=== PATIENT | female | born 1985 | race African-American/Black ===

== ENCOUNTER 2023-08-17 10:20 | Emergency (ER) | payer OTHER, SELFPAY ==
[2023-08-17 10:22] VITALS: BP 121/79
[2023-08-17 11:10] VITALS: BP 114/90
--- NOTE | 2023-08-17 11:10 | ED.GENMED ---
History of Present Illness
<Janice Rodney PA-C - Last Filed: 08/17/23 14:28>
General
Chief Complaint: Chest Pain
Source: patient
Exam Limitations: none
Time Seen by Provider: 08/17/23 10:52
Nursing documentation reviewed up to this point in time: agreed with
Travel History
Have you had any contact with someone who has COVID-19?: No
Do you have any symptoms of coronavirus? Fever > 100 degrees, chills, cough, shortness of breath, sore throat, loss of taste or smell, muscle aches, or headache?: No
History of Present Illness
History of Present Illness:
Patient is a 38-year-old female with no significant past medical history presenting for evaluation of chest pain. Symptoms started sometime over this past weekend, about 2 to 3 days ago, and have been intermittent since. Patient describes a
pressure and pain in her central chest with no radiation. She states symptoms seem somewhat worse with exertion, and while lying flat. She denies any pleuritic component to chest pain. She denies any tearing back pain, shortness of breath,
abdominal pain, pain/swelling in lower extremities. Patient denies any fever or chills.
Of note�patient does report recent URI last week with nasal congestion, productive cough. The symptoms have mostly resolved. She does report frequent sneezing episodes last week.
Patient denies any recent travel or recent surgery. No history of blood clots or family history of blood clots. No family history of CVD.
Past History
<Janice Rodney PA-C - Last Filed: 08/17/23 14:28>
Past History
ED Past Medical History: Other (Chronic neck pain)
ED Past Surgical History: Other (Regan teeth, hemorrhoidectomy)
Patient has exhibited threatening behavior?: No
PSI?: No
Social History
Tobacco: Non-smoker
Alcohol: Occasional
Drug: None
Living: with family
Phy Exam
<Janice Rodney PA-C - Last Filed: 08/17/23 14:28>
Physical Exam
Physical Exam:
Vitals: Patient's vital signs are stable
General: Patient is well appearing, no acute distress
Skin: Warm and dry, no rashes or lesions
Head: Normocephalic, atraumatic
Eyes: Sclera nonicteric. EOMs intact. No nystagmus.
Cardiac: Regular rate and rhythm, no murmurs; mild reproducible tenderness at lower sternal border.
Pulm: Normal respiratory effort, no wheezes, rales, rhonchi heard on exam.
Abdomen: No abdominal tenderness.
Extremities: No evidence of cyanosis or edema
Neuro: AAOx3. CN II-XII intact. No focal neurologic deficits.
Psychiatric: Normal affect.
Scores
<Janice Rodney PA-C - Last Filed: 08/17/23 14:28>
Heart Score for Chest Pain Patients
STEMI patient?: No
History: Slightly or Non-Suspicious
ECG: Normal
Age: </= 45 years
Risk Factors: No Risk Factors
Troponin: </= Normal Limit
Heart Score for Chest Pain Patients: 0
Heart Score Risk: 2.5% MACE over next 6 weeks
Course
<Janice Rodney PA-C - Last Filed: 08/17/23 14:28>
Orders/Labs/Results
Orders:
Orders
08/17/23 10:26
Electrocardiogram (*1) Urgent
Reason for Study: Chest Pain
EKG- Treatment ONCE
08/17/23 11:12
Test Result ONCE
08/17/23 11:13
CR Chest - 2 Views Urgent
Comment:
Reason For Exam: Sternal chest pain
08/17/23 11:16
Ketorolac [Toradol] 15 mg IV NOW STA
08/17/23 12:08
Ketorolac [Toradol] 15 mg IM NOW STA
08/17/23 12:51
Complete Blood Count/With Diff Urgent
Comprehensive Metabolic Panel Urgent
HCG, Serum Qualitative Screen Urgent
Troponin I Urgent
Abnormal Lab Results
08/17/23
12:51
MCHC 32.3 L g/dL
(33.0-37.0)
Neutrophils % 41.9 L %
(42.2-75.2)
08/17/23 12:51
08/17/23 12:51
Vital Signs
Initial and Last Documented VS:
Initial Vital Signs
Temp Pulse Resp BP Pulse Ox
98 F 61 16 121/79 100
08/17/23 10:22 08/17/23 10:22 08/17/23 10:22 08/17/23 10:22 08/17/23 10:22
Last Documented Vital Signs
Temp Pulse Resp BP Pulse Ox
98 F 77 13 100/74 100
08/17/23 10:22 08/17/23 14:10 08/17/23 12:00 08/17/23 14:10 08/17/23 14:10
<Bret Summers, DO - Last Filed: 08/17/23 11:24>
Orders/Labs/Results
Orders:
Orders
08/17/23 10:26
Electrocardiogram (*1) Urgent
Reason for Study: Chest Pain
EKG- Treatment ONCE
08/17/23 11:12
Test Result ONCE
08/17/23 11:13
CR Chest - 2 Views Urgent
Comment:
Reason For Exam: Sternal chest pain
08/17/23 11:16
Ketorolac [Toradol] 15 mg IV NOW STA
08/17/23 12:08
Ketorolac [Toradol] 15 mg IM NOW STA
08/17/23 12:51
Complete Blood Count/With Diff Urgent
Comprehensive Metabolic Panel Urgent
HCG, Serum Qualitative Screen Urgent
Troponin I Urgent
Abnormal Lab Results
08/17/23
12:51
MCHC 32.3 L g/dL
(33.0-37.0)
Neutrophils % 41.9 L %
(42.2-75.2)
08/17/23 12:51
08/17/23 12:51
Vital Signs
Initial and Last Documented VS:
Initial Vital Signs
Temp Pulse Resp BP Pulse Ox
98 F 61 16 121/79 100
08/17/23 10:22 08/17/23 10:22 08/17/23 10:22 08/17/23 10:22 08/17/23 10:22
Last Documented Vital Signs
Temp Pulse Resp BP Pulse Ox
98 F 77 13 100/74 100
08/17/23 10:22 08/17/23 14:10 08/17/23 12:00 08/17/23 14:10 08/17/23 14:10
<Janice Rodney PA-C - Last Filed: 08/17/23 14:28>
MDM/Problems Addressed
Differential Diagnosis Includes:
Not limited to: Costochondritis, pleurisy, pericarditis, myocarditis, GERD, pneumonia, doubt PE or ACS
MDM/Problems Addressed:
38-year-old female presenting for 2 days of chest pain following recent URI. Patient in no apparent distress, nontoxic appearing. Vital signs are stable. He is afebrile. Exam as above. Lungs clear bilaterally. Heart regular rate and rhythm,
very mild reproducible tenderness at lower sternal border. No lower extremity edema/tenderness or clinical signs of DVT. Will check basic labs, troponin, chest x-ray. EKG obtained in triage shows no signs of ischemia, no IA depression or other
signs to suggest pericarditis. Toradol for pain. Very low suspicion for ACS.
1:05PM: In to reassess patient at bedside. Patient more comfortable with decreased pain after Toradol. Labs pending�patient was a difficult stick and IV team coming down to place line.
Labs noted. No clinically significant abnormalities. Initial troponin negative. Given that symptoms have been ongoing for the past 2 days�just enough to rule out acute MO. Chest x-ray shows no acute abnormalities�no signs of pneumonia,
pneumothorax.
Patient has remained stable in emergency department. Workup has been entirely negative. Suspect this is likely an inflammatory process�possibly costochondritis from recent URI, coughing and sneezing. Stable for discharge with return precautions,
NSAIDs for pain. She will follow-up with primary care by end of week.
Chronic conditions affecting care:
N/A
Acute Exacerbation and/or Progression of Chronic Illness:
N/A
<Janice Rodney PA-C - Last Filed: 08/17/23 14:28>
*Radiology
Radiology exam reviewed: preliminary read by ED provider and radiology read reviewed
*Pulse Oximetry
Patient hypoxic: no
*EKG
Interpreted by ED Provider?: Yes
EKG Intrepretation Date: 08/17/23
Interpretation: normal
Comparison EKG: no changes
Heart Rate: 64
Rate: normal
Rhythm: sinus arrhythmia
Ischemia: no ischemia
*City Maintenance Manager Interpretation
Rate: normal
Interpretation: normal
Heart Rate: 62
Rhythm: sinus
*Critical Care Note
Total Time (30-74mins, 75-104mins- exclusive of procedures): Not Applicable
Data Reviewed
Review of Other/Old Records Reveals: Labs and Records
Source: previous hospital records
ED Attending Note
<Janice Rodney PA-C - Last Filed: 08/17/23 14:28>
-
Portions of this chart may have been created with voice recognition software.� Occasional wrong word or��sound alike� substitutions may have occurred due to the inherent limitations of voice recognition software.
<Bret Summers, DO - Last Filed: 08/17/23 11:24>
ED Attending Note
Patient seen and examined by attending physician: Yes
I performed the substantive portion of visit, reviewed & personally made and approve the management plan that is documented in note by myself or [facility].: Yes
ED Attending Note:
I have seen and evaluated the patient with a [id number] encounter. I have spoken to the advance practicer provider and involved in the medical history, the physical exam, medical decision making.
Evaluation and management service: agree unless noted differently below.
Results interpretation: agree unless noted differently below.
Focused HPI: 38-year-old female presenting with central chest discomfort for the past few days. She denies exertional symptoms. Symptoms are not worse when she takes a deep breath. Because symptoms were not reproducible, urgent care sent her in
for evaluation. She states she is currently being worked up for autoimmune issues. She states she has generalized muscle aches and goes on to describe multitude of other symptoms.
Physical exam: Sitting bed comfortably. Heart regular rate and rhythm. Lungs clear. No leg swelling or tenderness
Medical Decision Making: We discussed likely nonischemic chest pain. EKG within normal limits. Will obtain troponin and chest x-ray and will give NSAIDs
Discharge Plan
Departure
Patient Disposition: Home (Routine Discharge)
Date of Disposition: 08/17/23
Time of Disposition: 14:16
Patient with high blood pressure during this ER visit?: Yes
Condition: Good
Covid-19: Not Applicable
Discharge Problem:
Chest pain, unspecified
Instructions: Costochondritis (DC), Chest Pain
Prescriptions:
No Action
oxycodone 5 mg tablet
5 mg PO Q4H PRN (Reason: pain) Qty: 14 0RF
hydrocortisone acetate [Anusol-HC] 25 mg suppository
25 mg IA TID Qty: 24 0RF
diclofenac sodium 75 mg tablet,delayed release (DR/EC)
75 mg PO BID Qty: 10 0RF
Referrals:
Nigel Villarreal, [Family Provider] - Follow up in 2-3 days
Activity Restrictions/Additional Instructions:
- Return to the emergency department with any chest pain, shortness of breath, high fevers, persistent/worsening cough, coughing up blood, lightheadedness/fainting, severe back pain, chest pain that is made worse with exertion or breathing,
worsening current symptoms, or any other concerns
-You can take Motrin as needed for discomfort. Stay well-hydrated
-You should follow-up with your primary care provider within 3 to 5 days for further evaluation/management and to ensure symptoms are improving
Interventions
Interventions:
*Risk Screen - Suicide Last Done: 08/17/23 10:22
*General Assessment Last Done: 08/17/23 10:22
*Neglect/Abuse Screening Last Done: 08/17/23 10:22
*ED COVID-19 Vaccine History Last Done: 08/17/23 10:54
ED- Cardiac Assessment Last Done: 08/17/23 11:21
Discharge Date and Time
Print Language: BERMUDIAN
[2023-08-17] MEDS: TORADOL 15 MG IM (12:12)
[2023-08-17 12:59] LABS: % Basophils 0.7 % (0-2); % Eosinophils 3.8 % (0-6); % Lymphocytes 46.6 % (20.5-51.1); % Neutrophils 41.9 % (42.2-75.2); Absolute Eosinophils 0.2 10^3/uL (0-0.7); Absolute Lymphocytes 2.6 10^3/uL (1.2-3.4); Absolute Monocytes 0.4 10^3/uL (0.1-0.6); Absolute Neutrophils 2.3 10^3/uL (1.4-6.5); Hematocrit 40.3 % (37.0-47.0); Mean Corp Hgb Conc. 32.3 g/dL (33.0-37.0); Mean Corpuscular Hgb 27.5 pg (27.0-31.0); Mean Corpuscular Volume 85.4 fL (81.0-99.0); Mean Platelet Volume 10.1 fL (7.4-10.4); Nucleated Red Blood Cells % 0 %; Platelet Count 256 10^3/uL (130-400); Red Blood Cell Count 4.72 10^6/uL (4.20-5.40); Red Cell Dist. Width 13.2 % (11.5-14.5); White Blood Cell Count 5.6 10^3/uL (4.8-10.8)
[2023-08-17 13:24] LABS: ALT (SGPT) 15 U/L (0-35); AST (SGOT) 26 U/L (14-36); Albumin 4.6 g/dl (3.5-5.0); Alkaline Phosphatase 103 U/L (38-126); Blood Urea Nitrogen 9 mg/dl (7-17); Calcium 9.5 mg/dl (8.4-10.2); Carbon Dioxide 24 mmol/L (22-30); Chloride 105 mmol/L (98-107); Glucose 81 mg/dl (70-99); Potassium 4.6 mmol/L (3.5-5.1); Sodium 135 mmol/L (135-145); Total Bilirubin 0.4 mg/dl (0.2-1.3); Total Protein 8.1 g/dl (6.3-8.2); Troponin I < 0.012 ng/ml; eGFR > 60.00
[2023-08-17 13:29] LABS: HCG, Serum Qualitative Screen Negative
[2023-08-17 14:10] VITALS: BP 100/74
[2023-08-17 14:27] VITALS: BP 100/74
== END 2023-08-17 14:28 | disposition home or self-care (01) ==
LOC: EMR 10:20
PROVIDERS: Physician Assistant; EMERGENCY PHYSICIAN Student in an Organized Health Care Education/Training Program; FAMILY PHYSICIAN Family Medicine
DX: R07.89 Other chest pain (principal); R06.7 Sneezing; R05.9 Cough, unspecified; R03.0 Elevated blood-pressure reading, without diagnosis of hypertension
CPT/HCPCS: 99285; 96372; 71046; 80053; 84484; 84703; 85025; 93005